=== PATIENT | male | born 1945 | race Caucasian/White ===

== ENCOUNTER 2017-01-03 23:31 | Observation (INO) ==
[2017-01-04] MEDS ORDERED: ONDANSETRON 4 MG/2 ML VIAL IV STA (00:09)
[2017-01-04] MEDS ORDERED: SODIUM CHLORIDE 0.9% 500 ML IV STA (00:09)
[2017-01-04] MEDS ORDERED: ALUM/MAG/SIMETH/LIDO VISC 1:1 30 ML BOTTLE PO STA (00:09)
[2017-01-04] MEDS ORDERED: NITROGLYCERIN 2% OINT 1 INCH/GM PACK TOP STA (00:09)
[2017-01-04] MEDS ORDERED: ONDANSETRON 4 MG/2 ML VIAL ONE (00:20)
[2017-01-04] MEDS ORDERED: ALUM/MAG/SIMETH/LIDO VISC 1:1 30 ML BOTTLE PO ONE (00:20)
[2017-01-04] MEDS ORDERED: NITROGLYCERIN 2% OINT 1 INCH/GM PACK TOP ONE (00:20)
[2017-01-04 00:36] LABS: Basophils % 0.3 % (0.0-0.8); Eosinophils % 0.3 % (0.00-10.9); Hematocrit 37.5 VOL% (42.0-52.0); Hemoglobin 14.1 GM/DL (14.0-18.0); Immature Granulocytes % 0.3 %; Immature Granulocytes Absolute 0.02 #; Lymphocytes % 14.9 % (21.2-54.2); Mean Corpuscular HGB Conc 37.6 GM/DL (32-36); Mean Corpuscular Hemoglobin 33 PG (27-34); Mean Corpuscular Volume 88.2 FL (87-102); Mean Platelet Volume 8.9 FL (9.6-12.0); Monocytes # 0.6 10*3/uL (0.11-0.8); Monocytes % 8.3 % (1.7-12.7); Neutrophils # 5.3 10*3/uL (1.4-7.4); Neutrophils % 75.9 % (38.7-73.9); Platelet Count 213 T/CUMM (130-400); Red Blood Count 4.25 MC/CUMM (3.8-5.5); Red Cell Distribution Width 11.7 % (9.3-17.3)
--- NOTE | 2017-01-04 00:36 | Emergency Department Note ---
Carolyn Babcock Brittany, am scribing for, and in the presence of, Paulo Vasquez MD 00:22. Pedro Babcock Charles R, MD, personally performed the services described in this documentation, ascribed by Shannon Leon in my presence, and it is both accurate and complete . Arrival - Arrival Chief Complaint: Chest Pain ED Nursing Triage Note: Pt arrives via ems from home with complaints of chest pain that started tonight. Pt complains of multiple chronic pain issues at time of triage. He states that he was recently cut back on his ativan and oxycodone that he has been taking for 4 yrs. Pt complains of nausea for three days, dry mouth, sweating, sob, back pain, right and left arm pain, and neck pain. Pt states that he is just able to tolerate the medication changes and thinks it has stressed his heart. Mode of Arrival: Stretcher Limitations: No Limitations Source: Patient Time Seen by Provider: 01/03/17 23:56 - History of Present Illness HPI Narrative: This is a 71 y/o white male, who presents to the ED with c/o CP which started earlier today. He states he is SOB with the chest pain. He reports his PCP is Dr. Garcia and he has recently started seeing a pain clinic. He reports he was taking Oxycodone and Ativan and now has started to decrease the amount and times of the medication. He reports diarrhea, diaphoresis, abdominal pain, bilateral arm pain, back pain, and neck pain ( All of which are Sx of drug detox ). He states he is a pt of Dr. Rawls at the pain clinic. Pt appears to be more occupied with the drugs/medication he can not take and has been taking. Pt appears to be very nervous during the time of triage. Pt has no other complaints /pain in the ED at this time. Pt has a PMHx of HTN, back/neck problems, and piloerection disorder. Pt denies a surgical Hx. Pt denies a family medical Hx. Pt denies the use of tobacco and street drugs, but notes occasionally drinking alcohol. Onset (ago): hour(s) (Started earlier today) Consistency: constant Severity: moderate Allergies/Adverse Reactions: Allergies Allergy/AdvReac Type Severity Reaction Status Date / Time doxycycline Allergy ANAPHYLAXIS Verified 01/03/17 23:58 ketorolac [From Toradol] Allergy ANAPHYLAXIS Verified 01/03/17 23:58 Minocycline Allergy ANAPHYLAXIS Verified 01/03/17 23:58 NSAIDS (Non-Steroidal Allergy ANAPHYLAXIS Verified 01/03/17 23:44 Anti-Inflamma tramadol [From Ultram] Allergy Unknown/Unable Verified 01/03/17 23:58 to obtain Home Medications: Home Medications Medication Instructions Recorded Confirmed Type Cholecalciferol (Vitamin D3) 5,000 unit PO DAILY 01/03/17 01/04/17 History [Vitamin D3] Eszopiclone [Lunesta] 3 mg PO BEDTIME 01/03/17 01/04/17 History LORazepam TAB [Ativan Tab] 1.5 mg PO DAILY PRN 01/03/17 01/04/17 History Magnesium 500 mg PO BEDTIME 01/03/17 01/04/17 History Olmesartan/Hydrochlorothiazide 1 each PO DAILY 01/03/17 01/04/17 History [Benicar Hct 40-25 mg Tablet] Oxycodone HCl/Acetaminophen 1 each PO TID 01/03/17 01/04/17 History [Oxycodone-Acetaminophen 5-325] Potassium Chloride [Klor-Con 10] 10 meq PO BID 01/03/17 01/04/17 History Tolterodine Tartrate [Tolterodine 2 mg PO BEDTIME 01/03/17 01/04/17 History LA] Review of System - Review of System 12 point system: reviewed and no additional remarkable complaints except as stated - Review of System Constitutional: Present: diaphoresis Head/Ears/Nose/Throat: Present: other (Dry mouth) Cardiovascular: Present: chest pain, dyspnea on exertion Gastrointestinal: Present: abdominal pain, diarrhea Musculoskeletal: Present: arm pain (Bilateral arm pain ), back pain, neck pain Medical,Surgical,& Family Hx - Medical History Cardio: History of: Hypertension Musculoskeletal: History of: Back/Neck Problems Other: History of: Miscellaneous Medical Problems (Chronic pain) - Social History Smoking Status: Unknown if ever smoked Frequency of Alcohol Use: Occasionally Type of Drug Use: None Exam Vital Signs: Vital Signs Temperature 98.1 F 01/04/17 00:10 Pulse Rate 70 01/04/17 01:20 Respiratory Rate 18 01/04/17 01:20 Blood Pressure 123/77 01/04/17 01:20 O2 Sat by Pulse Oximetry 97 01/04/17 01:20 - General General appearance: alert, in no apparent distress - Head Head exam: Present: atraumatic, normocephalic, normal inspection - Eye Eye exam: Present: normal appearance, PERRL, EOMI - ENT ENT exam: Present: normal exam, mucous membranes dry, TM's normal bilaterally, normal external ear exam - Neck Neck exam: Present: normal inspection, full ROM, trachea midline. Absent: tenderness, meningismus, lymphadenopathy, thyromegaly - Chest Chest inspection: Present: normal inspection, symmetric chest wall rise. Absent : tenderness, rash, abscess - Respiratory Respiratory exam: Present: normal lung sounds bilaterally. Absent: rales, respiratory distress, rhonchi, stridor, wheezes - Cardiovascular Cardiovascular exam: Present: regular rate, normal rhythm, normal heart sounds. Absent: murmur, rubs, gallop, clicks - Abdominal Exam Abdominal exam: Present: soft, normal bowel sounds. Absent: distention, tenderness, guarding, rebound, rigidity - Rectal Exam Rectal exam: Present: deferred - Extremities Exam Extremities exam: Present: normal capillary refill, joint swelling (Bone Deformities Secondary to Piloerection disorder). Absent: tenderness, pedal edema, calf tenderness - Back Exam Back exam: Present: normal inspection, full ROM. Absent: tenderness, muscle spasm, rashes - Neurological Exam Neurological exam: Present: alert, oriented X3, CN II-XII intact. Absent: motor sensory deficit - Psychiatric Psychiatric exam: Present: anxious (Nervous looking, More peroccupied with the drugs he was taking ), other - Skin Skin exam: Present: warm, dry, intact, normal color. Absent: rash, cyanosis, diaphoresis, erythema, pallor, mottled Course - Consultations Consultation #1: Hospitalist will admit patient Time: 01:28 Results - Labs CBC & BMP: 01/04/17 00:26 01/04/17 00:26 Lab Results: I have reviewed the patients labs Disposition Clinical Impression: Atypical chest pain, Benzodiazepine withdrawal, Opiate withdrawal, Nausea & vomiting, Generalized weakness, Yogi-Danlos syndrome, Chronic pain, Chest pain , Hyponatremia, Gas and bloating Case discussed with: patient Disposition: Still a Patient Condition: Stable Time of Disposition: 01:28
[2017-01-04 00:44] LABS: Apearance,Urine CLEAR (Clear); Bilirubin,Urine Negative (Negative); Blood, Urine Negative (Negative); Glucose,Urine (UA) Negative (Negative); Ketones,Urine 20 mg/dL (Negative); Mucus,Urine Occasional /LPF (Occasional); Nitrite,Urine Negative (Negative); PT Patient Result 10.7 SECS; Protein,Urine Negative; RBC,Urine 2 /HPF (0-4); Urine Color Yellow (Yellow); Urine Specific Gravity 1.008 (1.001-1.035); Urine Urobilinogen < 2.0 EU/DL (0.2-1.0); WBC,Urine <1 /HPF (0-6)
[2017-01-04 00:53] LABS: Barbiturates Screen,Urine Negative (Negative); Benzodiazepines Screen,Urine Negative (Negative); Cannabinoid Screen,Urine Negative (Negative); Opiate Screen,Urine Negative (Negative); Phencyclidine Screen,Urine Negative (Negative)
[2017-01-04 00:56] LABS: Albumin 4.3 G/DL (3.4-5.0); Bilirubin,Total 1.2 MG/DL (0.2-1.0); Calcium 8.6 MG/DL (8.5-10.1); Osmolality,Calculated 249.6 MOS/KG (273-304); Potassium 3.6 MMOL/L (3.5-5.1); Total Protein 7.1 G/DL (6.4-8.3)
[2017-01-04 01:02] LABS: Magnesium 1.8 MG/DL (1.8-2.4)
[2017-01-04] MEDS ORDERED: SIMETHICONE CHEW 80 MG TABLET PO STA (01:25)
[2017-01-04] MEDS ORDERED: SIMETHICONE CHEW 80 MG TABLET PO ONE (01:29)
[2017-01-04 04:27] LABS: Band Neutrophils 3 % (0-10); Lymphocytes 14 % (20-55); Segmented Neutrophils 78 % (50-85)
[2017-01-04 04:28] LABS: Platelet Estimate Normal; Total Cells Counted 100
[2017-01-04] MEDS ORDERED: LORazepam 1 MG TABLET PO PRN (05:11)
[2017-01-04] MEDS ORDERED: ONDANSETRON 4 MG/2 ML VIAL IV PRN (05:12)
[2017-01-04] MEDS ORDERED: BISACODYL 5 MG TABLET PO PRN (05:12)
[2017-01-04] MEDS ORDERED: ACETAMINOPHEN 325 MG TABLET PO PRN (05:12)
--- NOTE | 2017-01-04 05:21 | Hospitalist History & Physical ---
Assessment and Plan - Time spent with patient Time spent with patient: Greater than 30 minutes (1) Atypical chest pain Status: Acute Current Visit: Yes (2) Opiate withdrawal Status: Acute Current Visit: Yes (3) Hyponatremia Status: Acute Current Visit: Yes (4) Hypertension Status: Acute Current Visit: Yes Qualifiers: Hypertension type: essential hypertension Qualified Code(s): I10 - Essential (primary) hypertension (5) Chronic pain Status: Acute Current Visit: Yes (6) Yogi-Danlos syndrome Status: Acute Assessment and plan: Plan: EKG and biomarkers negative thus far, will check serial enzymes Monitor on telemetry Consult Dr. Lomeli due to opioid withdrawal and severe chronic pain issues/ polypharmacy May need to DC HCTZ from his blood pressure regimen due to his hyponatremia Current Visit: Yes History of Present Illness Chief complaint: Chest discomfort History of present illness: Mr. Baer is a 71 year old male with hypertension, chronic pain syndrome, reported Yogi-Danlos syndrome, who is here with several hours of chest discomfort. Patient was originally going to leave [place] but decided to stay, mainly to see Dr. Lomeli in the morning, who is his pain management doctor. He reports feeling clammy, crampy abdominal pain, "generalized pain all over," over the weekend. He mentioned that he had some chest discomfort and I was called to admit the patient. When I initially interviewed the patient he reported he thought his chronic back pain was radiating to his chest. The pain was worse with movement and palpation of the left chest wall. His initial EKG and enzymes are negative. Patient reports having been on oxycodone and Ativan. He states he has been tapering off rapidly this weekend and now appears to be having opioid withdrawal. He denies shortness of breath, fever. He feels clammy, "sick headed,"-does not define what this means during my interview. When I came back to interview him a second time he stated his pain was mostly in his back. I reviewed his recent MRI reports which were negative for fracture. He denies trauma/injury since that time. Home Medications Medication Instructions Recorded Confirmed Type Cholecalciferol (Vitamin D3) 5,000 unit PO DAILY 01/03/17 01/04/17 History [Vitamin D3] Eszopiclone [Lunesta] 3 mg PO BEDTIME 01/03/17 01/04/17 History LORazepam TAB [Ativan Tab] 1.5 mg PO DAILY PRN 01/03/17 01/04/17 History Magnesium 500 mg PO BEDTIME 01/03/17 01/04/17 History Olmesartan/Hydrochlorothiazide 1 each PO DAILY 01/03/17 01/04/17 History [Benicar Hct 40-25 mg Tablet] Oxycodone HCl/Acetaminophen 1 each PO TID 01/03/17 01/04/17 History [Oxycodone-Acetaminophen 5-325] Potassium Chloride [Klor-Con 10] 10 meq PO BID 01/03/17 01/04/17 History Tolterodine Tartrate [Tolterodine 2 mg PO BEDTIME 01/03/17 01/04/17 History LA] Allergies Allergy/AdvReac Type Severity Reaction Status Date / Time doxycycline Allergy ANAPHYLAXIS Verified 01/03/17 23:58 ketorolac [From Toradol] Allergy ANAPHYLAXIS Verified 01/03/17 23:58 Minocycline Allergy ANAPHYLAXIS Verified 01/03/17 23:58 NSAIDS (Non-Steroidal Allergy ANAPHYLAXIS Verified 01/03/17 23:44 Anti-Inflamma tramadol [From Ultram] Allergy Unknown/Unable Verified 01/03/17 23:58 to obtain Medical,Surgical,& Family Hx - Medical History Cardio: History of: Hypertension Psychological: History of: Depression (Suspected) Endocrine: No history of: Diabetes Mellitus (NIDDM) Musculoskeletal: History of: Back/Neck Problems, Degenerative Disk Disease, Musculoskeletal Problems (Patient reports he has Yogi-Danlos syndrome) Other: History of: Miscellaneous Medical Problems (Chronic pain) - Surgical History Orthopedic Surgeries: Surgical HX of;: Orthopedic Surgery - Family History Family History: Reports;: Family Hypertension - Social History Smoking Status: Never smoker Frequency of Alcohol Use: Occasionally Type of Drug Use: None Marital Status: Unknown Functional capacity: independent ambulation Review of systems: A 12 point review of systems is negative except as specified in the HPI Exam - Constitutional Vitals: Period Temp Pulse Resp BP Sys/Acuña Pulse Ox Last 24 Hr 98.1 F-98.1 F 69-87 15-20 123-162/77-92 95-100 Exam: EXAM: CONSTITUTIONAL: non toxic, NAD HEENT: NC, AT, OP benign, CHRISTINA, EOMI CV: RRR no m/g/r, reproducible left-sided chest wall pain with palpation RESP: clear B/L, no w/r/r GI: abd soft, NT, ND, +bowel sounds INTEGUMENTARY: no lesions or rash EXTREMITIES: no c/c/e NEURO: no focal deficits PSYCH: unremarkable, A/O x3 Results - Labs CBC & BMP: 01/04/17 00:26 01/04/17 00:26 Lab Results: I have reviewed the past 24 hour labs - EKG EKG shows: sinus rhythm (Occasional PVCs) - Diagnostic Findings Procedure: Chest x-ray: image reviewed by me, MRI: report reviewed by me
[2017-01-04 07:05] LABS: Troponin I Only < 0.015 NG/ML (0.00-0.045)
--- NOTE | 2017-01-04 07:10 | XRay Report ---
Exam: XR chest 2V Date: 01/04/2017 12:11 AM Indication: Chest pain Comparison: None Technical: PA lateral Findings: Degenerative spondylosis change present thoracic spine. A few granuloma changes are present with reticular nodular densities in the lung devlin. Previous right rotator cuff surgery with cortical anchor screws present. The heart is normal in size. External cardiac leads are present. Small hiatal hernia suspected. Lungs reveal no obvious infiltrates or effusions or pneumothorax. ASVD is present. Impression: 1. Granuloma changes 2. No acute cardiopulmonary pathology 3. Previous rotator cuff surgery on the right 4. Hiatal hernia 5. Degenerative spondylosis change thoracic spine PROCEDURE INTERPRETED AT [facility] DEPARTMENT OF RADIOLOGY Final Report Signed by: Dr. Darrius Torres
--- NOTE | 2017-01-04 07:13 | XRay Report ---
Exam: XR abdomen 2V Date: 01/04/2017 12:12 AM Indication: Nausea abdominal pain Comparison: None Technical: Supine and erect imaging Findings: Lung bases are unremarkable. Degenerative spondylosis change present. The liver and spleen shadow and renal shadows are mostly obscured. Belt buckle superimposes the exam over the pelvis and a zipper. Prior surgical changes in the right lower quadrant with surgical suture present. No obvious pneumoperitoneum. Scattered debris within the bowel. No obvious pneumoperitoneum Impression: 1. Degenerative spondylosis changes thoracolumbar spine 2. Previous surgical changes right lower quadrant 3. Phleboliths in the true pelvis. 4. Nonspecific GI pattern. PROCEDURE INTERPRETED AT [facility] DEPARTMENT OF RADIOLOGY Final Report Signed by: Dr. Darrius Torres
--- NOTE | 2017-01-04 07:20 | EKG Report ---
Stationary ECG Study [facility] Test Date: 01/04/2017 7:20:30 AM Pat Name: NEO KINGSTON Department: Room: 272 Gender: M Instructor Of Education: MANDI : 1945 Requested by: Paulo Perdue Order Number: [id number] Alina MD: MICKY MARIE Intervals [place] Rate: 67 P: 57 PA: 175 QRS: 26 QRSD: 101 T: 47 QT: 424 QTc: 440 Interpretive Statements SINUS RHYTHM Electronically Signed On 01-04-17 07:39:17 CDT by MICKY MARIE [email or web address]
[2017-01-04] MEDS: oxyCODONE/ACETAMINOPHEN 5-325 MG TABLET PO PRN ×3 (07:55→23:40)
[2017-01-04] MEDS: SODIUM CHLORIDE 0.9% 1,000 ML IV SCH ×2 (07:56→16:18)
[2017-01-04] MEDS: POTASSIUM CHLORIDE 10 MEQ TABLET PO SCH ×2 (08:42→20:48)
[2017-01-04] MEDS: PANTOPRAZOLE 40 MG TABLET PO SCH (08:43)
[2017-01-04] MEDS: CHOLECALCIFEROL 1,000 UNIT TABLET PO SCH (08:43)
[2017-01-04] MEDS: ENOXAPARIN 40 MG/0.4 ML SYRINGE SUBCUT SCH (08:49)
--- NOTE | 2017-01-04 10:42 | Hospitalist Progress Note ---
Assessment and Plan - Time spent with patient Time spent with patient: Less than 30 minutes (1) Atypical chest pain Status: Acute Assessment and plan: Generalized pain all over especially in the joints. Chest pain is more with palpating chest area. will continue home medications. Dr Lomeli has been consulted for pain management follow up. continue low dose ativan at this time. Current Visit: Yes (2) Nausea & vomiting Status: Acute Assessment and plan: Denies any vomiting since receiving zofran in the ER. Will continue order of PRN zofran for return of nausea and/or vomiting. Current Visit: Yes (3) Opiate withdrawal Status: Acute Assessment and plan: Continue p.o. ativan 1.5mg daily. PRN pain medications continue. Dr Lomeli has been consulted for further pain management recommendations. Current Visit: Yes (4) Hyponatremia Status: Acute Assessment and plan: this a.m. sodium 124. Patient has been nauseated and vomiting. Continue NS at 125cc/hr at present. will repeat labs in the a.m. Current Visit: Yes Hospitalist: Subjective Interval history: 01/04/17 - Mr Baer resting in bed, states "I feel if I just be real still then maybe my joints and muscles will not hurt so bad" . He reports chronic pain but verbalizes it is "it is much worse since I am stopping my pain medications and ativan that Dr Lomeli had me on to manage my pain. I do not feel myself right now". He verbalized that he stayed in the hospital so that he could see Dr Lomeli and maybe he can manage his pain better. Exam - Constitutional Vitals: Period Temp Pulse Resp BP Sys/Acuña Pulse Ox Last 24 Hr 98.1 F-98.2 F 65-87 15-20 117-162/61-92 95-100 General appearance: normal weight, no acute distress - Head Head exam: Present: normal inspection - Eye Eye exam: Present: EOMI Pupils: Present: CHRISTINA - Neck Neck exam: Present: normal inspection - Respiratory Respiratory exam: Present: clear to auscultation bilaterally - Cardiovascular Cardiovascular exam: Present: regular rate and rhythm, other (chest tenderness with palpations more toward left side) - GI/Abdominal GI/Abdominal exam: Present: normal bowel sounds, soft - Extremities Exam Extremities exam: Present: normal inspection - Neurological Exam Neurological exam: Present: alert, oriented X3 - Psychiatric Psychiatric exam: Present: flat affect - Skin Skin exam: Present: normal color, warm, dry Results - Labs CBC & BMP: 01/04/17 00:26 01/04/17 00:26 Lab Results: I have reviewed the past 24 hour labs
--- NOTE | 2017-01-04 12:26 | Pain Management Consult Note ---
Assessment and Plan (1) Lumbar degenerative disc disease Problem details: Low back pain with a radicular component Status: Acute Assessment and plan: Long-standing low back pain worsening with a radicular component. Further workup and treatment in the clinic as an outpatient setting will be helpful. Will set up follow-up appointment for him several days after discharge, but later this week. Current Visit: Yes (2) Chronic pain Problem details: Long-standing chronic pain due to a combination of back pain and joint pain Status: Acute Assessment and plan: The patient has long-standing pain with a combination of joint pain related to his Yogi-Danlos syndrome and lumbar degenerative disc disease with low back pain. In association with this he has a lumbar radiculopathy. We have seen him one time in clinic in consultation 2 weeks ago. At that time I felt that he was on a dose of benzodiazepines and opioids that might present some risk for him so we are we were in the process of backing both of these down somewhat. During that process we also started him on Cymbalta and this caused nausea subsequently stopped taking his other medicines and went through withdrawal symptomatology. Back on the lorazepam and opioid he is feeling better. We will need to see him in clinic later this week to readjust his medicines and work through the tapering process much more slowly. Also he might benefit from interventions for his back pain. Current Visit: Yes Qualifiers: Chronic pain type: chronic pain syndrome Qualified Code(s): G89.4 - Chronic pain syndrome History of Present Illness Chief complaint: Back pain History of present illness: Mr. Baer is a 71 year old male known to me with long-standing low back pain that radiates in the lower extremities. He also has generalized joint pain and has the diagnosis of Yogi-Danlos syndrome. We saw Mr. Baer in consultation 2 weeks ago at which time I had his medicines reduced, he was on a relatively high dose of oral opioids and benzodiazepines which because of potential risk and drug interaction with the reduced the medicines. He several days ago took a Cymbalta which caused nausea and thus did not take his other medicines for 1 or 2 days, and subsequently developed severe withdrawal symptomatology including GI upset diarrhea dry mouth etc. Since starting back on the Ativan and oxycodone he is feeling better. Home Medications Medication Instructions Recorded Confirmed Type Cholecalciferol (Vitamin D3) 5,000 unit PO DAILY 07/09/17 07/10/17 History [Vitamin D3] Eszopiclone [Lunesta] 3 mg PO BEDTIME 01/03/17 01/04/17 History LORazepam TAB [Ativan Tab] 1.5 mg PO DAILY PRN 01/03/17 01/04/17 History Magnesium 500 mg PO BEDTIME 01/03/17 01/04/17 History Olmesartan/Hydrochlorothiazide 1 each PO DAILY 01/03/17 01/04/17 History [Benicar Hct 40-25 mg Tablet] Oxycodone HCl/Acetaminophen 1 each PO TID 01/03/17 01/04/17 History [Oxycodone-Acetaminophen 5-325] Potassium Chloride [Klor-Con 10] 10 meq PO BID 01/03/17 01/04/17 History Tolterodine Tartrate [Tolterodine 2 mg PO BEDTIME 01/03/17 01/04/17 History LA] Allergies Allergy/AdvReac Type Severity Reaction Status Date / Time doxycycline Allergy ANAPHYLAXIS Verified 01/03/17 23:58 ketorolac [From Toradol] Allergy ANAPHYLAXIS Verified 01/03/17 23:58 Minocycline Allergy ANAPHYLAXIS Verified 01/03/17 23:58 NSAIDS (Non-Steroidal Allergy ANAPHYLAXIS Verified 01/03/17 23:44 Anti-Inflamma tramadol [From Ultram] Allergy Unknown/Unable Verified 01/03/17 23:58 to obtain Medical,Surgical,& Family Hx - Medical History Cardio: History of: Hypertension Psychological: History of: Depression (Suspected) Endocrine: No history of: Diabetes Mellitus (NIDDM) Musculoskeletal: History of: Back/Neck Problems, Degenerative Disk Disease, Musculoskeletal Problems (Patient reports he has Yogi-Danlos syndrome) Other: History of: Miscellaneous Medical Problems (Chronic pain) - Surgical History Neurologic Surgeries: Patient denies: Neurologic Surgery Orthopedic Surgeries: Surgical HX of;: Orthopedic Surgery - Family History Family History: Reports;: Family Hypertension - Social History Smoking Status: Never smoker Frequency of Alcohol Use: Occasionally Type of Drug Use: None - Constitutional Constitutional: Present: anorexia, excessive sweating, lethargy - Cardiovascular Cardiovascular: Present: chest pain with activity (Improved) - Gastrointestinal Gastrointestinal: Present: diarrhea - Musculoskeletal Musculoskeletal: Present: arthralgias, back pain, joint swelling - Neurological Neurological: Present: numbness, paresthesias - Endocrine Endocrine: Present: fatigue, heat intolerance Exam - Constitutional Vitals: Period Temp Pulse Resp BP Sys/Acuña Pulse Ox Last 24 Hr 98.1 F-98.3 F 63-87 15-20 117-162/61-92 95-100 General appearance: normal weight, no acute distress - Eye Eye exam: Present: EOMI - ENT Ear exam: Present: [facility] - Neck Neck exam: Present: normal inspection - Respiratory Respiratory exam: Present: clear to auscultation bilaterally - Cardiovascular Cardiovascular exam: Present: RRR - GI/Abdominal GI/Abdominal exam: Present: normal bowel sounds - Extremities Exam Extremities exam: Present: other (Generalized joint tenderness) - Back Exam Back exam: Present: vertebral tenderness - Neurological Exam Neurological exam: Present: alert, oriented X3 Speech: Present: normal - Skin Skin exam: Present: dry Results - Labs CBC & BMP: 01/04/17 00:26 01/04/17 00:26
[2017-01-04] MEDS ORDERED: ALUMINUM/MAGNES/SIMETH MAX STR 30 ML UDCUP PO PRN (15:55)
[2017-01-04] MEDS: LOPERAMIDE 2 MG CAPSULE PO PRN ×2 (16:18→20:50)
[2017-01-04] MEDS ORDERED: MAGNESIUM GLUCONATE 500 MG TABLET PO SCH (21:00)
[2017-01-04] MEDS ORDERED: TOLTERODINE LA 2 MG CAPSULE PO SCH (21:00)
[2017-01-04] MEDS: ZALEPLON 5 MG CAPSULE PO SCH (23:23)
[2017-01-05] MEDS ORDERED: LORazepam 1 MG TABLET PO PRN (00:04)
[2017-01-05] MEDS: ZALEPLON 5 MG CAPSULE PO SCH (02:21)
[2017-01-05 05:54] LABS: Basophils % 0.4 % (0.0-0.8); Eosinophils % 0.6 % (0.00-10.9); Hematocrit 36.1 VOL% (42.0-52.0); Hemoglobin 13.3 GM/DL (14.0-18.0); Immature Granulocytes % 0.6 %; Immature Granulocytes Absolute 0.03 #; Lymphocytes # 1.3 10*3/uL (1.4-4.0); Lymphocytes % 25.1 % (21.2-54.2); Mean Corpuscular HGB Conc 36.8 GM/DL (32-36); Mean Corpuscular Hemoglobin 33 PG (27-34); Mean Corpuscular Volume 89.6 FL (87-102); Mean Platelet Volume 9.4 FL (9.6-12.0); Monocytes # 0.7 10*3/uL (0.11-0.8); Monocytes % 13.7 % (1.7-12.7); Neutrophils % 59.6 % (38.7-73.9); Platelet Count 208 T/CUMM (130-400); Red Blood Count 4.03 MC/CUMM (3.8-5.5); Red Cell Distribution Width 11.9 % (9.3-17.3)
[2017-01-05 06:28] LABS: Calcium 8.5 MG/DL (8.5-10.1); Magnesium 2.1 MG/DL (1.8-2.4); Osmolality,Calculated 267.1 MOS/KG (273-304); Potassium 3.9 MMOL/L (3.5-5.1)
[2017-01-05] MEDS: PANTOPRAZOLE 40 MG TABLET PO SCH (08:10)
[2017-01-05] MEDS: oxyCODONE/ACETAMINOPHEN 5-325 MG TABLET PO PRN (08:10)
[2017-01-05] MEDS: POTASSIUM CHLORIDE 10 MEQ TABLET PO SCH (08:10)
[2017-01-05] MEDS: ENOXAPARIN 40 MG/0.4 ML SYRINGE SUBCUT SCH (08:11)
[2017-01-05] MEDS: CHOLECALCIFEROL 1,000 UNIT TABLET PO SCH (08:12)
[2017-01-05 12:22] VITALS: BP 123/76
--- NOTE | 2017-01-05 13:46 | Event Note ---
Continue with present plan regarding lower dose of oral opioids and benzodiazepines. We will plan to see him in the clinic in the next 2 days for further lowering and titration of these medicines.
--- NOTE | 2017-01-05 14:16 | Discharge Summary ---
Hospital Course - Hospital Course Hospital Course: The patient was admitted to the hospital with dry mouth dizziness and generalized body pain consistent with narcotic withdrawal. The patient's opioid medications have been tapered recently. Dr. Lomeli was consulted and made adjustment of the medications which alleviated the greatest part of the patient's symptoms. Dr. Lomeli plans to follow the patient up in the office in 2 days for continued tapering. At the time of discharge, chest clear and abdomen soft. The patient is a former smoker and was counseled for 4 minutes to continue off of tobacco products. 32 minutes were required for discharge procedures and documentation. - Time spent with patient Time with patient DS: Greater than 30 minutes Diagnosis - Discharge Diagnosis (1) Atypical chest pain Status: Acute (2) Benzodiazepine withdrawal Status: Acute Specialty Discharge - Follow Up or Referrals Follow up with: Darrius Lomeli MD [Physician] - 01/06/17 3:00 pm (KEEP SCHEDULED FOLLOW UP APPOINTMENT) Discharge Plan - Discharge Data Disposition: Disch To Home/Self Care Condition at Discharge: Stable - Discharge Medications Continue Potassium Chloride [Klor-Con 10] 10 meq PO BID Cholecalciferol (Vitamin D3) [Vitamin D3] 5,000 unit PO DAILY Oxycodone HCl/Acetaminophen [Oxycodone-Acetaminophen 5-325] 1 each PO TID LORazepam TAB [Ativan Tab] 1.5 mg PO DAILY PRN PRN Reason: Anxiety Eszopiclone [Lunesta] 3 mg PO BEDTIME Olmesartan/Hydrochlorothiazide [Benicar Hct 40-25 mg Tablet] 1 each PO DAILY Magnesium 500 mg PO BEDTIME Tolterodine Tartrate [Tolterodine LA] 2 mg PO BEDTIME - Follow Up or Referral Follow Up: Darrius Lomeli MD [Physician] - 01/06/17 3:00 pm (KEEP SCHEDULED FOLLOW UP APPOINTMENT) - Forms/Instructions Exam - Constitutional Vitals: Period Temp Pulse Resp BP Sys/Acuña Pulse Ox Last 24 Hr 97.3 F-98.4 F 64-71 18-20 114-146/73-81 96-99 Discharge Results Labs on day of discharge: Labs from last 24 hours 01/05/17 01/05/17 04:08 04:08 WBC 5.0 RBC 4.03 Hgb 13.3 L Hct 36.1 L MCV 89.6 MCH 33 MCHC 36.8 H RDW 11.9 Plt Count 208 MPV 9.4 L Neut % (Auto) 59.6 Lymph % (Auto) 25.1 [place] % (Auto) 13.7 H Eos % (Auto) 0.6 Baso % (Auto) 0.4 Neut # (Auto) 3.0 Lymph # (Auto) 1.3 L [place] # (Auto) 0.7 Eos # (Auto) 0.0 Baso # (Auto) 0.0 Immature Gran % 0.6 Nucleated RBC % 0.0 Immature Gran # 0.03 Nucleated RBCs # 0.00 Sodium 135 L Potassium 3.9 Chloride 101 Carbon Dioxide 25 Anion Gap 12.9 BUN 9 Creatinine 0.80 GFR Calculation 98 BUN/Creatinine Ratio 11.00 Glucose 79 Calculated Osmolality 267.1 L Calcium 8.5 Magnesium 2.1 DS: Provider Date of admission: 01/04/17 05:12 Primary care physician: . No PCP Attending physician on admission: Isidoro Chopra DO Consults: 01/04/17 05:12 Consult to Physician [CONS] Routine Comment: chronic pain, suspect opioid withdrawal Consulting Provider: Darrius Lomeli When should Consulting Provider be notified: In am Person Notified: Noemi Date Notified: 01/04/17 Time Notified: 08:35 Discharging clinician: Juan Mohan MD
== END 2017-01-05 15:15 | disposition home or self-care (01) ==
LOC: EDBD → EDUNIT# → N.EDINP 23:31 → N.ED 23:31 → SUATTDRO 01-04 05:12 → N.TELES 01-04 06:13
PROVIDERS: ADMIT Internal Medicine; ATTEND Internal Medicine

== ENCOUNTER 2017-10-10 12:12 | Inpatient (IN) ==
[2017-10-10] MEDS ORDERED: DEXAMETHASONE 4 MG/1 ML VIAL IV STA (12:35)
[2017-10-10] MEDS ORDERED: DEXAMETHASONE 4 MG/1 ML VIAL ONE (12:47)
[2017-10-10 13:12] LABS: Basophils % 0.4 % (0.0-0.8); Eosinophils % 0.2 % (0.00-10.9); Immature Granulocytes % 0.4 %; Immature Granulocytes Absolute 0.02 #; Platelet Count 262 T/CUMM (130-400)
[2017-10-10 13:20] LABS: Apearance,Urine CLEAR (Clear); Bilirubin,Urine Negative (Negative); Blood, Urine Moderate mg/dL (Negative); Glucose,Urine (UA) Negative (Negative); Ketones,Urine 20 mg/dL (Negative); Nitrite,Urine Negative (Negative); Protein,Urine Negative; RBC,Urine 1 /HPF (0-4); Urine Color Yellow (Yellow); Urine Specific Gravity 1.008 (1.001-1.035); Urine Urobilinogen < 2.0 EU/DL (0.2-1.0); WBC,Urine 1 /HPF (0-6)
[2017-10-10 13:35] LABS: Hematocrit 39.4 VOL% (42.0-52.0); Hemoglobin 14.4 GM/DL (14.0-18.0); Lymphocytes # 0.9 10*3/uL (1.4-4.0); Lymphocytes % 17.6 % (21.2-54.2); Mean Corpuscular HGB Conc 36.5 GM/DL (32-36); Mean Corpuscular Hemoglobin 33 PG (27-34); Mean Corpuscular Volume 90.6 FL (87-102); Mean Platelet Volume 9.1 FL (9.6-12.0); Monocytes # 0.5 10*3/uL (0.11-0.8); Monocytes % 9.5 % (1.7-12.7); Neutrophils # 3.5 10*3/uL (1.4-7.4); Neutrophils % 71.9 % (38.7-73.9); Red Blood Count 4.35 MC/CUMM (3.8-5.5); Red Cell Distribution Width 11.6 % (9.3-17.3); White Blood Count 4.8 T/CUMM (4-12)
[2017-10-10 13:41] LABS: Alanine Aminotransferase 32 U/L (16-61); Alkaline Phosphatase 45 U/L (45-117); Aspartate Amino Transferase 40 U/L (0-37); Blood Urea Nitrogen 17 MG/DL (7-18); CKMB % 5.3 %; Calcium 8.9 MG/DL (8.5-10.1); Glucose 85 MG/DL (74-106); Osmolality,Calculated 242.2 MOS/KG (273-304); Potassium 3.6 MMOL/L (3.5-5.1); Troponin I Only < 0.015 NG/ML (0.00-0.045)
[2017-10-10 13:43] LABS: Sodium 120 MMOL/L (136-145)
[2017-10-10] MEDS ORDERED: ONDANSETRON 4 MG/2 ML VIAL IV STA (14:15)
[2017-10-10] MEDS ORDERED: HYDROmorphone 2 MG/1 ML VIAL IV STA (14:15)
[2017-10-10] MEDS ORDERED: SODIUM CHLORIDE 0.9% 1,000 ML IV STA (14:15)
[2017-10-10] MEDS ORDERED: HYDROmorphone 2 MG/1 ML VIAL ONE (14:20)
[2017-10-10] MEDS ORDERED: ONDANSETRON 4 MG/2 ML VIAL ONE (14:20)
[2017-10-10] MEDS ORDERED: ALUM/MAG/SIMETH/LIDO VISC 1:1 30 ML BOTTLE PO ONE (14:26)
[2017-10-10] MEDS ORDERED: ALUM/MAG/SIMETH/LIDO VISC 1:1 30 ML BOTTLE PO STA (14:26)
[2017-10-10] MEDS ORDERED: ACETAMINOPHEN 325 MG TABLET PO PRN (15:44)
[2017-10-10] MEDS ORDERED: LACTULOSE 20 GM/30 ML UDCUP PO PRN (15:55)
[2017-10-10] MEDS ORDERED: LORazepam 1 MG TABLET PO PRN (15:57)
[2017-10-10] MEDS: SODIUM CHLORIDE 0.9% 1,000 ML IV SCH (16:29)
[2017-10-10] MEDS: ONDANSETRON 4 MG/2 ML VIAL IV PRN (17:19)
[2017-10-10 17:36] LABS: Calcium 9.2 MG/DL (8.5-10.1); Osmolality,Calculated 249.6 MOS/KG (273-304); Potassium 3.9 MMOL/L (3.5-5.1)
[2017-10-10 17:41] LABS: CKMB % 5.4 %; Troponin I Only < 0.015 NG/ML (0.00-0.045)
[2017-10-10 19:58] LABS: Calcium 8.4 MG/DL (8.5-10.1); Osmolality,Calculated 255.4 MOS/KG (273-304); Potassium 3.7 MMOL/L (3.5-5.1)
[2017-10-10] MEDS: ZALEPLON 5 MG CAPSULE PO SCH (20:53)
[2017-10-10] MEDS: busPIRone 5 MG TABLET PO SCH (20:53)
[2017-10-10 21:37] LABS: Calcium 8.8 MG/DL (8.5-10.1); Osmolality,Calculated 254.2 MOS/KG (273-304); Potassium 3.9 MMOL/L (3.5-5.1)
[2017-10-10 23:46] LABS: Calcium 8.8 MG/DL (8.5-10.1); Osmolality,Calculated 248.6 MOS/KG (273-304)
[2017-10-11] MEDS: oxyCODONE/ACETAMINOPHEN 5-325 MG TABLET PO PRN ×3 (00:40→17:17)
[2017-10-11] MEDS ORDERED: DOCUSATE SODIUM 100 MG CAPSULE PO PRN (01:01)
[2017-10-11] MEDS: ALUMINUM/MAGNES/SIMETH MAX STR 30 ML UDCUP PO PRN ×3 (01:14→17:16)
[2017-10-11] MEDS: SODIUM CHLORIDE 0.9% 1,000 ML IV SCH ×2 (02:29→16:09)
[2017-10-11 02:36] LABS: Calcium 8.6 MG/DL (8.5-10.1); Osmolality,Calculated 252.4 MOS/KG (273-304)
[2017-10-11 02:41] LABS: CKMB % 5.5 %; Troponin I Only < 0.015 NG/ML (0.00-0.045)
[2017-10-11 03:12] LABS: Potassium,Urine Random 19 MMOL/L
[2017-10-11 07:33] LABS: Basophils % 0.4 % (0.0-0.8); Eosinophils % 0.4 % (0.00-10.9); Hematocrit 38.6 VOL% (42.0-52.0); Hemoglobin 14.1 GM/DL (14.0-18.0); Immature Granulocytes % 0.2 %; Immature Granulocytes Absolute 0.01 #; Lymphocytes # 1.3 10*3/uL (1.4-4.0); Lymphocytes % 23.4 % (21.2-54.2); Mean Corpuscular HGB Conc 36.5 GM/DL (32-36); Mean Corpuscular Hemoglobin 33 PG (27-34); Mean Corpuscular Volume 91.5 FL (87-102); Mean Platelet Volume 8.9 FL (9.6-12.0); Monocytes # 0.8 10*3/uL (0.11-0.8); Neutrophils # 3.4 10*3/uL (1.4-7.4); Neutrophils % 60.6 % (38.7-73.9); Platelet Count 255 T/CUMM (130-400); Red Blood Count 4.22 MC/CUMM (3.8-5.5); Red Cell Distribution Width 11.9 % (9.3-17.3); White Blood Count 5.5 T/CUMM (4-12)
[2017-10-11 07:50] LABS: Albumin 3.8 G/DL (3.4-5.0); Bilirubin,Direct 0.35 MG/DL (0.0-0.20); Bilirubin,Total 1.3 MG/DL (0.2-1.0); Total Protein 6.6 G/DL (6.4-8.3)
[2017-10-11 07:57] LABS: Calcium 8.9 MG/DL (8.5-10.1); Osmolality,Calculated 255.1 MOS/KG (273-304); Thyroid Stimulating Hormone 0.328 uIU/ml (0.358-3.74)
[2017-10-11] MEDS: PANTOPRAZOLE 40 MG TABLET PO SCH (08:34)
[2017-10-11] MEDS: busPIRone 5 MG TABLET PO SCH ×2 (08:34→20:59)
[2017-10-11] MEDS: METOPROLOL SUCCINATE XL 50 MG TABLET PO SCH (08:35)
[2017-10-11] MEDS: SERTRALINE 25 MG TABLET PO SCH (08:36)
[2017-10-11] MEDS: predniSONE 20 MG TABLET PO SCH (08:36)
[2017-10-11] MEDS: FLUCONAZOLE 40 MG/ML 35 ML/BOTTLE PO SCH (08:37)
[2017-10-11] MEDS ORDERED: hydroCHLOROthiazide 25 MG TABLET PO SCH (09:00)
[2017-10-11] MEDS ORDERED: OLMESARTAN 20 MG TABLET PO SCH (09:00)
[2017-10-11] MEDS: SIMETHICONE CHEW 80 MG TABLET PO SCH (18:09)
[2017-10-11] MEDS: ZALEPLON 5 MG CAPSULE PO SCH (20:59)
[2017-10-12] MEDS: oxyCODONE/ACETAMINOPHEN 5-325 MG TABLET PO PRN ×2 (00:31→10:05)
[2017-10-12] MEDS: SODIUM CHLORIDE 0.9% 1,000 ML IV SCH (01:03)
[2017-10-12 04:40] LABS: Basophils % 0.4 % (0.0-0.8); Eosinophils % 0.6 % (0.00-10.9); Hematocrit 36.4 VOL% (42.0-52.0); Hemoglobin 12.9 GM/DL (14.0-18.0); Immature Granulocytes % 0.2 %; Immature Granulocytes Absolute 0.01 #; Lymphocytes # 1.4 10*3/uL (1.4-4.0); Lymphocytes % 27.6 % (21.2-54.2); Mean Corpuscular HGB Conc 35.4 GM/DL (32-36); Mean Corpuscular Hemoglobin 33 PG (27-34); Mean Corpuscular Volume 94.3 FL (87-102); Mean Platelet Volume 9.1 FL (9.6-12.0); Monocytes # 0.6 10*3/uL (0.11-0.8); Monocytes % 12.6 % (1.7-12.7); Neutrophils # 2.9 10*3/uL (1.4-7.4); Neutrophils % 58.6 % (38.7-73.9); Platelet Count 229 T/CUMM (130-400); Red Blood Count 3.86 MC/CUMM (3.8-5.5)
[2017-10-12 05:08] LABS: Calcium 8.3 MG/DL (8.5-10.1); Osmolality,Calculated 264.2 MOS/KG (273-304); Potassium 3.5 MMOL/L (3.5-5.1)
[2017-10-12] MEDS: ONDANSETRON 4 MG/2 ML VIAL IV PRN (07:25)
[2017-10-12 09:13] VITALS: BP 125/75
[2017-10-12] MEDS: ALUMINUM/MAGNES/SIMETH MAX STR 30 ML UDCUP PO PRN (10:02)
[2017-10-12] MEDS: METOPROLOL SUCCINATE XL 50 MG TABLET PO SCH (10:03)
[2017-10-12] MEDS: predniSONE 20 MG TABLET PO SCH (10:04)
[2017-10-12] MEDS: PANTOPRAZOLE 40 MG TABLET PO SCH (10:06)
[2017-10-12] MEDS: SIMETHICONE CHEW 80 MG TABLET PO SCH ×2 (10:06→14:07)
[2017-10-12] MEDS: busPIRone 5 MG TABLET PO SCH (10:07)
[2017-10-12] MEDS: SERTRALINE 25 MG TABLET PO SCH (10:07)
[2017-10-12] MEDS: FLUCONAZOLE 40 MG/ML 35 ML/BOTTLE PO SCH (10:07)
[2017-10-12] MEDS ORDERED: ONDANSETRON 4 MG/2 ML VIAL ONE (13:00)
[2017-10-12] MEDS ORDERED: PROPOFOL 200 MG/20 ML VIAL IV ONE (13:00)
[2017-10-12] MEDS ORDERED: LIDOCAINE 1% 5 ML VIAL ONE (13:00)
== END 2017-10-12 14:23 | disposition home or self-care (01) | DRG 392 ==
LOC: EDUNIT# → N.ED 12:12 → SUATTDRO 14:29 → N.EDINP 14:29 → N.2E 15:07
PROVIDERS: ADMIT Internal Medicine; ATTEND Family Medicine